=== PATIENT | female | born 1965 | race African-American/Black ===

== ENCOUNTER 2018-09-16 23:02 | Emergency (ER) | payer MEDICAID ==
[~2018-09-16] VITALS: Ht 165.1 cm; Wt 73.0 kg
[2018-09-16 23:11] VITALS: BP 154/85
== END 2018-09-17 04:10 | disposition left against medical advice (07) ==
LOC: ER 23:02
DX: Z53.21 Procedure and treatment not carried out due to patient leaving prior to being seen by health care provider (principal)